=== PATIENT | female | born 1955 | race Hispanic/Latino ===

== ENCOUNTER 2018-08-06 15:08 | Emergency (ER) | payer BC, OTHER ==
[2018-08-06 15:14] VITALS: BP 123/80; PULSE 76; RESP 12; TEMP 97.5; O2SAT 98
--- NOTE | 2018-08-06 17:06 | C.PDOC ---
History Of Present Illness Patient is a 62 year old female who presents to the ED c/o left lower back pain that began after transferring her form a reclining chair to a wheelchair. She did not take any medical for her pain. Patient denies trauma, bowel or bladder incontinence, saddle anaesthesia, CP, or SOB. Time Seen by Provider: 08/06/18 15:20 Chief Complaint (Nursing): Back Pain History Per: Patient History/Exam Limitations: no limitations Onset/Duration Of Symptoms: Hrs Current Symptoms Are (Timing): Still Present Quality Of Discomfort: "Pain" (left lower back ) Associated Symptoms: denies: Incontinence Recent travel outside of the [place]: No Additional History Per: Patient Past Medical History Reviewed: Historical Data, Nursing Documentation, Vital Signs Vital Signs: Last Vital Signs Temp 97.5 F L 08/06/18 15:09 Pulse 76 08/06/18 15:09 Resp 12 08/06/18 15:09 BP 123/80 08/06/18 15:09 Pulse Ox 98 08/06/18 15:09 - Medical History PMH: No Chronic Diseases Surgical History: No Surg Hx Family History: States: No Known Family Hx - Social History Hx Alcohol Use: No Hx Substance Use: No - Immunization History Hx Tetanus Toxoid Vaccination: No Hx Influenza Vaccination: No Hx Pneumococcal Vaccination: No Review Of Systems Except As Marked, All Systems Reviewed And Found Negative. Cardiovascular: Negative for: Chest Pain Respiratory: Negative for: Shortness of Breath Genitourinary: Negative for: Incontinence (bowel/bladder) Neurological: Negative for: Other (saddle anesthesia) Physical Exam - Physical Exam Appears: Non-toxic, No Acute Distress Skin: Normal Color, Warm, Dry Head: Atraumatic, Normacephalic Oral Mucosa: Moist Neck: Normal ROM, Supple Chest: Symmetrical Cardiovascular: Rhythm Regular Respiratory: Normal Breath Sounds Gastrointestinal/Abdominal: Normal Exam, Soft, No Tenderness Back: Other (tenderness to left lower back ) Extremity: Normal ROM ED Course And Treatment O2 Sat by Pulse Oximetry: 98 (on RA) Pulse Ox Interpretation: Normal Medical Decision Making Medical Decision Making: Plan: Flexeril 10mg PO Motrin 600mg PO Disposition - Disposition Referrals: Blanquita Billings MD [Staff Provider] - Disposition: HOME/ ROUTINE Disposition Time: 15:25 Condition: GOOD Additional Instructions: TIFFANI NOLAN, thank you for letting us take care of you today. The emergency medical care you received today was directed at your acute symptoms. If you were prescribed any medication, please fill it and take as directed. It may take several days for your symptoms to resolve. Return to the Emergency Department if your symptoms worsen, do not improve, or if you have any other problems. Please contact your doctor or call one of the physicians/clinics you have been referred to that are listed on the Patient Visit Information form that is included in your discharge packet. Bring any paperwork you were given at discharge with you along with any medications you are taking to your follow up visit. Our treatment cannot replace ongoing medical care by a primary care pr ovider outside of the emergency department. Thank you for allowing the [facility] team to be part of your care today. Follow up with your primary care doctor in 2-3 days for re-evaluation and further management. Prescriptions: Cyclobenzaprine [Cyclobenzaprine HCl] 10 mg PO Q8 PRN #20 tab PRN Reason: Muscle Spasm Ibuprofen [Motrin] 600 mg PO Q6 PRN #20 tab PRN Reason: Pain, Moderate (4-7) Instructions: Low Back Pain in Adults, Helping to Transfer Someone Safely Forms: [place] (Kiswahili) - Clinical Impression Clinical Impression: Low back pain, Low back strain - Scribe Statement The provider has reviewed the documentation as recorded by the Terranceibarlette Locke All medical record entries made by the Scribe were at my direction and personally dictated by me. I have reviewed the chart and agree that the record a ccurately reflects my personal performance of the history, physical exam, medical decision making, and the department course for this patient. I have also personally directed, reviewed, and agree with the discharge instructions and disposition.
== END 2018-08-06 16:05 | disposition home or self-care (01) ==
LOC: C.ER 15:08
DX: S39.012A Strain of muscle, fascia and tendon of lower back, initial encounter (principal); X58.XXXA Exposure to other specified factors, initial encounter